=== PATIENT | female | born 1935 | race Caucasian/White ===

== ENCOUNTER 2020-08-23 16:07 | Emergency (ER) | payer MEDICARE, OTHER ==
--- NOTE | 2020-08-23 16:50 | EDM.PDOC ---
ED HPI GENERAL MEDICAL PROBLEM - General Chief Complaint: Chest Pain Stated Complaint: HEART PROBLEMS Time Seen by Provider: 08/23/20 16:28 Source of Information: Reports: Patient History Limitations: Reports: No Limitations - History of Present Illness INITIAL COMMENTS - FREE TEXT/NARRATIVE: Patient presents from [facility] with recent episodes of dyspnea and chest pain. She says it started 3 weeks ago. For a long time she has walked on the treadmill for 30 minutes at a time. Three weeks ago she started having dyspnea along with burning and tightness in her chest after 20 minutes of walking. It has steadily progressed until last week she had the symptoms after 5 minutes of walking. With the worst episodes she also has pain in left side of neck and jaw. She made an appointment with her PCP for today but prior to the appointment she had the chest pain, tightness and dyspnea after walking across the street with a small box of dolls she and a neighbor were working on. She says the pain has always resolved within a couple minutes of sitting to rest. It has never started while sitting or lying. - Related Data Allergies Allergy/AdvReac Type Severity Reaction Status Date / Time cortisone Allergy Swelling Verified 08/23/20 16:14 Bmwbyja-Baq-Xin Reductase Allergy Fatigue Verified 08/23/20 16:14 Inhibitor sulfacetamide Allergy Swelling Verified 08/23/20 16:14 [From Sulfamide] Home Meds: Home Meds Aspirin [Adult Low Dose Aspirin EC] 81 mg PO DAILY 08/23/20 [History] Candesartan/Hydrochlorothiazid [Candesartan-Hctz 32-25 mg Tab] 1 each PO DAILY 08/23/20 [History] Furosemide [Lasix] 20 mg PO DAILY 08/23/20 [History] Metoprolol Succinate [Toprol Xl] 50 mg PO DAILY 08/23/20 [History] Past Medical History Cardiovascular History: Reports: High Cholesterol, Hypertension, SOB on Exertion Genitourinary History: Reports: Urinary Incontinence Social & Family History - Tobacco Use Tobacco Use Status *Q: Never Tobacco User - Caffeine Use Caffeine Use: Reports: Coffee - Recreational Drug Use Recreational Drug Use: No ED ROS GENERAL - Review of Systems Review Of Systems: See Below Constitutional: Denies: Fever, Chills, Malaise, Weakness, Diaphoresis HEENT: Denies: Ear Pain, Throat Pain, Vision Change Respiratory: Reports: Shortness of Breath. Denies: Cough Cardiovascular: Reports: Chest Pain. Denies: Lightheadedness, Syncope GI/Abdominal: Denies: Abdominal Pain, Diarrhea, Nausea, Vomiting : Reports: Dysuria (chronic with incontinence, doesn't know if she might have a UTI) Musculoskeletal: Reports: Neck Pain (sometimes with the chest pain). Denies: Arm Pain, Back Pain, Hand Pain Skin: Denies: Cyanosis, Jaundice, Mottled, Pallor, Diaphoresis Neurological: Denies: Confusion, Dizziness, Headache, Seizure, Syncope, Trouble Speaking, Difficulty Walking Psychiatric: Denies: Agitation, Anxiety, Confusion ED EXAM, GENERAL - Physical Exam Exam: See Below Exam Limited By: No Limitations General Appearance: Alert, WD/WN, No Apparent Distress Eye Exam: Bilateral Eye: EOMI, Normal Inspection, PERRL Ears: Normal External Exam, Hearing Grossly Normal Nose: Normal Inspection, No Blood Throat/Mouth: Normal Inspection, Normal Lips, Normal Voice, No Airway Compromise Head: Atraumatic, Normocephalic Neck: Normal Inspection, Full Range of Motion Respiratory/Chest: No Respiratory Distress, Lungs Clear, Normal Breath Sounds Cardiovascular: Regular Rate, Rhythm, No Murmur GI/Abdominal: Normal Bowel Sounds, Soft, Non-Tender, No Organomegaly, No Distention Back Exam: Normal Inspection, Full Range of Motion. No: CVA Tenderness (L), CVA Tenderness (R) Extremities: Normal Inspection, Normal Range of Motion Neurological: Alert, Oriented, Normal Cognition, No Motor/Sensory Deficits Psychiatric: Normal Affect, Normal Mood Skin Exam: Warm, Dry, Intact, Normal Color, No Rash Course - Vital Signs Last Recorded V/S: Last Vital Signs Temp 97.6 F 08/23/20 18:25 Pulse 55 L 08/23/20 18:25 Resp 18 08/23/20 18:25 BP 168/83 H 08/23/20 18:25 Pulse Ox 98 08/23/20 18:25 - Orders/Labs/Meds Orders: Active Orders 24 hr Category Date Time Status CULTURE URINE [RM] Stat Lab 08/23/20 18:33 Ordered Heparin Sodium/D5W 250 ml Med 08/23/20 19:30 Ordered IV TITRATE Medication Orders Heparin Sodium/Dextrose () 250 mls @ 0.289 mls/hr IV TITRATE MANISH; Protocol Labs: Laboratory Tests 08/23/20 08/23/20 08/23/20 Range/Units 17:15 17:50 18:15 WBC 6.51 (5.00-10.00) 10^3/uL RBC 4.48 (3.80-5.50) 10^6/uL Hgb 12.7 (12.0-16.0) g/dL Hct 38.8 (37.0-47.0) % MCV 86.6 (82.0-92.0) fL MCH 28.3 (27.0-31.0) pg MCHC 32.7 (32.0-36.0) g/dL RDW 13.0 (11.5-14.5) % Plt Count 198 (150-400) 10^3/uL MPV 9.2 (7.4-10.4) fL Immature Gran % (Auto) 0.2 (0.0-5.0) % Neut % (Auto) 60.8 (50.0-70.0) % Lymph % (Auto) 27.5 (20.0-40.0) % Thayer % (Auto) 7.2 (2.0-8.0) % Eos % (Auto) 4.0 H (1.0-3.0) % Baso % (Auto) 0.3 (0.0-1.0) % Neut # (Auto) 3.96 (2.50-7.00) 10^3/uL Lymph # (Auto) 1.79 (1.00-4.00) 10^3/uL Thayer # (Auto) 0.47 (0.10-0.80) 10^3/uL Eos # (Auto) 0.26 (0.10-0.30) 10^3/uL Baso # (Auto) 0.02 (0.00-0.10) 10^3/uL Immature Gran # (Auto) 0.01 (0.00-0.50) 10^3/uL POC Sodium 140 (138-146) mmol/L POC Potassium 3.8 (3.5-4.5) mmol/L POC Chloride 101 (98-107) mmol/l POC Total CO2 30 (23-30) mmol/L POC Anion Gap 13 (7-16) mmol/L POC BUN 29 H (8-26) mg/dL POC Creatinine 1.82 H (0.51-1.19) mg/dL POC Estimated GFR (eGFR) 26 mL/min POC Glucose 122 H (74-106) mg/dl POC Ioniz Calcium Diaz 1.14 L (4.6-5.3) mmol/L POC Troponin I 0.79 H (0.00-0.08) ng/mL Specimen Type Urinblad Urine Color Yellow (YELLOW) Urine Appearance Clear (CLEAR) Urine pH 5.5 (5.0-9.0) Ur Specific Springer 1.020 (1.005-1.030) Urine Protein Negative (NEGATIVE) mg/dL Urine Glucose (UA) Negative (NEGATIVE) mg/dL Urine Ketones Negative (NEGATIVE) mg/dL Urine Occult Blood Negative (NEGATIVE) Urine Nitrite Positive H (NEGATIVE) Urine Bilirubin Negative (NEGATIVE) Urine Urobilinogen 0.2 (0.2-1.0) E.U./dL Ur Leukocyte Esterase Moderate H (NEGATIVE) Urine RBC 0-5 (0-5) /HPF Urine WBC 30-40 H (0-5) /HPF Ur Epithelial Cells Few /LPF Urine Bacteria Moderate H (NONE TO FEW) /HPF Meds: Medications Generic Name Dose Route Start Last Admin Trade Name Freq PRN Reason Stop Dose Admin Heparin Sodium/Dextrose 250 mls @ 0.289 mls/hr 08/23/20 19:30 IV TITRATE MANISH Protocol 12 UNITS/KG/HR - Re-Assessments/Exams Free Text/Narrative Re-Assessment/Exam: 08/23/20 19:23 Lab analyzer was down for awhile so troponin results were delayed. I discussed this with patient and apologized for the delay. EKG shows S-T depression in V3-6. Troponin is 0.79. I discussed case with Dr. Cardenas who accepted for transfer to [facility]. Discussed findings and treatment plan with patient and her son. Patient has been stable and asymptomatic throughout ER course. She has had only aspirin so far but will start Heparin drip now. Departure - Departure Time of Disposition: 19:26 Disposition: DC/Tfer to Acute Hospital 02 Reason for Transfer *Q: Other Condition: Good Clinical Impression: Elevated troponin, UTI (urinary tract infection), uncomplicated Chest pain due to myocardial ischemia Qualifiers: Ischemic chest pain type: unstable angina pectoris Qualified Code(s): I20.0 - Unstable angina Referrals: Esme Alonzo, MUSCULOSKELETAL PHYSIOTHERAPIST [Primary Care Provider] - Forms: ED Department Discharge Sepsis Event Note (ED) - Evaluation Sepsis Screening Result: No Definite Risk - Focused Exam Vital Signs: Vital Signs Temp Pulse Resp BP Pulse Ox 08/23/20 18:25 97.6 F 55 L 18 168/83 H 98 08/23/20 16:14 97.8 F 57 L 18 153/65 H 95 - My Orders Last 24 Hours: My Active Orders 08/23/20 18:33 CULTURE URINE [RM] Stat 08/23/20 19:30 Heparin Sodium/D5W 250 ml IV TITRATE - Assessment/Plan Last 24 Hours: My Active Orders 08/23/20 18:33 CULTURE URINE [RM] Stat 08/23/20 19:30 Heparin Sodium/D5W 250 ml IV TITRATE
--- NOTE | 2020-08-23 17:11 | CR ---
[id number] RAD/RAD Chest PA And Lateral EXAM: RAD Chest PA And Lateral INDICATION: DYSPNEA, CHEST PAIN. COMPARISON: None. DISCUSSION: Cardiomediastinal silhouette is normal in size and contour. No infiltrate, effusion, pneumothorax, or edema. Pulmonary hyperinflation. IMPRESSION: No acute cardiopulmonary abnormality. Alex Cantrell DO 08/23/20 [id number] Thank you for allowing us to participate in the care of your patient.
[2020-08-23 18:19] LABS: POTASSIUM,POC 3.8 mmol/L (3.5-4.5)
[2020-08-23] MEDS ORDERED: Heparin Sodium/D5W 250 ML IV SCH (19:30)
== END 2020-08-23 20:09 ==
LOC: KA.ED 16:07
DX: I20.0 Unstable angina (principal); N39.0 Urinary tract infection, site not specified; R79.89 Other specified abnormal findings of blood chemistry; I10 Essential (primary) hypertension; Z88.8 Allergy status to other drugs, medicaments and biological substances; Z88.2 Allergy status to sulfonamides; Z79.82 Long term (current) use of aspirin; Z79.899 Other long term (current) drug therapy
CPT/HCPCS: 36415; 71046; 80047; 81001; 84484; 85025; 87086; 87088; 87186; 93005; 96374; 99284; 99285-25; J1644

== ENCOUNTER 2020-09-01 12:10 | Inpatient (IN) | payer MEDICARE, OTHER ==
[2020-09-01] MEDS ORDERED: traMADol 50 MG Tab PO PRN (15:56)
[2020-09-01] MEDS ORDERED: Glucagon,Human Recombinant 1 MG Vial IM PRN (15:56)
[2020-09-01] MEDS ORDERED: 50% Dextrose in Water 50 ML Syringe IV PRN (15:56)
[2020-09-01] MEDS: Acetaminophen 325 MG Tab PO PRN ×2 (16:39→22:38)
[2020-09-01] MEDS: Insulin Aspart 100 Units/ML 3 ML Pen SUBCUT SCH ×2 (17:43→21:44)
[2020-09-01] MEDS: Apixaban 5 MG Tab PO SCH (20:11)
[2020-09-01] MEDS: Metoprolol Succinate 50 MG Tab.ER PO SCH (20:12)
[2020-09-02] MEDS: Acetaminophen 325 MG Tab PO PRN ×2 (03:21→22:39)
[2020-09-02] MEDS: Omeprazole 20 MG Cap.CR PO SCH (06:59)
[2020-09-02] MEDS: Insulin Aspart 100 Units/ML 3 ML Pen SUBCUT SCH (07:49)
--- NOTE | 2020-09-02 08:26 | PCM.HP.2 ---
H&P History of Present Illness - General Date of Service: 09/02/20 Admit Problem/Dx: Admission Diagnosis/Problem Admission Diagnosis/Problem "Coronary artery bypass with autogenous graft, three grafts " Mid-Sternal Chest Pain Score (Numeric/FACES): 2 - Related Data Allergies/Adverse Reactions: Allergies Allergy/AdvReac Type Severity Reaction Status Date / Time ciprofloxacin Allergy Cannot Verified 09/01/20 12:29 Remember cortisone Allergy Swelling Verified 08/23/20 16:14 Kfzrrya-Qgm-Vou Reductase Allergy Fatigue Verified 08/23/20 16:14 Inhibitor sulfacetamide Allergy Swelling Verified 08/23/20 16:14 [From Sulfamide] Home Medications: Home Meds Furosemide [Lasix] 40 mg PO DAILY 08/23/20 [History] Acetaminophen [Tylenol] 650 mg PO Q4H PRN 08/31/20 [History] Cholecalciferol (Vitamin D3) [Vitamin D3] 50 mcg PO DAILY 08/31/20 [History] Docusate Sodium 250 mg PO DAILY 08/31/20 [History] Omeprazole 20 mg PO ACBREAKFAST 08/31/20 [History] Pravastatin Sodium 10 mg PO BEDTIME 08/31/20 [History] traMADol [Ultram] 25 mg PO Q4H PRN 08/31/20 [History] Amiodarone [Cordarone] 400 mg PO DAILY 09/01/20 [History] Apixaban [Eliquis] 5 mg PO BID 09/01/20 [History] Aspirin [Halfprin] 81 mg PO DAILY 09/01/20 [History] Insulin Aspart [NovoLOG] 2 - 8 unit SUBCUT WITHMEALSANDBED 09/01/20 [History] Metoprolol Succinate [Toprol Xl] 50 mg PO BID 09/01/20 [History] Past Medical History HEENT History: Reports: Impaired Vision Cardiovascular History: Reports: Afib, High Cholesterol, Hypertension, SOB on Exertion Respiratory History: Reports: None Gastrointestinal History: Reports: GERD Genitourinary History: Reports: Urinary Incontinence [employer] WORK[employer] History: Reports: Neurological History: Reports: None Psychiatric History: Reports: None Hematologic History: Reports: None Immunologic History: Reports: None Oncologic (Cancer) History: Reports: None Dermatologic History: Reports: None - Infectious Disease History Infectious Disease History: Reports: Chicken Pox - Past Surgical History Head Surgeries/Procedures: Reports: None Cardiovascular Surgical History: Reports: Coronary Artery Bypass Other Cardiovascular Surgeries/Procedures: CABG x3 on August 25 2020 Social & Family History - Tobacco Use Tobacco Use Status *Q: Never Tobacco User - Caffeine Use Caffeine Use: Reports: Coffee - Recreational Drug Use Recreational Drug Use: No H&P Review of Systems - Review of Systems: Review Of Systems: See Below General: Reports: No Symptoms HEENT: Reports: No Symptoms Pulmonary: Reports: Cough (very mild cough only, sporadic) Cardiovascular: Reports: Chest Pain (slight chest wall pain) Gastrointestinal: Denies: Constipation, Nausea, Vomiting Genitourinary: Reports: No Symptoms Musculoskeletal: Reports: Other (Chest wall pain, on coughing she is using her splint) Skin: Reports: Wound (Sternotomy healing well, left wrist radial healing well) Psychiatric: Reports: No Symptoms Neurological: Denies: Confusion Hematologic/Lymphatic: Reports: No Symptoms Immunologic: Reports: No Symptoms Exam - Exam Exam: See Below - Vital Signs Vital Signs: Last Vital Signs Temp 97.2 F 09/02/20 06:32 Pulse 63 09/02/20 06:32 Resp 24 H 09/02/20 06:32 BP 158/67 H 09/02/20 06:32 Pulse Ox 93 L 09/02/20 06:32 Weight: 199 lb - Exam Quality Assessment: No: Supplemental Oxygen General: Alert, Oriented, 4 HEENT: Mucosa Moist & [place] Neck: Supple Lungs: Clear to Auscultation, Normal Respiratory Effort Cardiovascular: Regular Rate, Regular Rhythm GI/Abdominal Exam: Soft. No: No Distention (Female) Exam: Deferred Extremities: Other (Plus nonpitting edema bilateral lower ankles) Peripheral Pulses: 0: Radial (L) (post CABG), 2+: Radial (R) Skin: Incision (Anatomy chest wall healing well, left wrist healing well) Neurological: Cranial Nerves Intact Neuro Extensive - Mental Status: Alert, Oriented x3, Normal Mood/Affect, Normal Cognition Neuro Extensive - Motor, Sensory, Reflexes: CN II-XII Intact, Normal Gait, Normal Reflexes Psychiatric: Alert, Normal Affect, Normal Mood - Patient Data Lab Results Last 24 hrs: Laboratory Results - last 24 hr 09/01/20 09/01/20 09/02/20 Range/Units 17:37 21:36 07:32 POC Glucose 115 127 104 (70-140) mg/dL Sepsis Event Note - Evaluation Sepsis Screening Result: No Definite Risk - Focused Exam Vital Signs: Vital Signs Temp Pulse Resp BP Pulse Ox 09/02/20 06:32 97.2 F 63 24 H 158/67 H 93 L 09/01/20 21:00 96.7 F L 101 H 24 H 152/83 H 95 Problem List Initiated/Reviewed/Updated: Yes Orders Last 24hrs: Active Orders 24 hr Category Date Time Status Patient Status [ADT] Routine ADT 09/01/20 12:13 Active Ambulate [RC] PER UNIT ROUTINE Care 09/01/20 12:40 Active Blood Glucose Check, Bedside [RC] 0730,1130,1730,21 Care 09/01/20 12:40 Active Communication Order [RC] DAILY Care 09/01/20 10:59 Active Height and Weight [RC] We@07 Care 09/01/20 12:42 Active Intake and Output [RC] 1400,2200,0600 Care 09/01/20 12:40 Active May Shower [RC] ASDIRECTED Care 09/01/20 12:40 Active Oxygen Therapy [RC] .PRN Care 09/01/20 12:40 Active Up ad Cynthia [RC] ASDIRECTED Care 09/01/20 12:40 Active VTE/DVT Education [RC] We@09 Care 09/01/20 12:40 Active Vital Signs [RC] Care 09/01/20 12:40 Active PT Evaluation and Treatment [CONS] Routine Cons 09/01/20 12:40 Active Regular Diet [DIET] Diet 09/01/20 Dinner Active Acetaminophen [TylenoL] Med 09/01/20 15:56 Active 650 mg PO Q4H PRN Amiodarone [Cordarone] Med 09/02/20 09:00 Active 400 mg PO DAILY Apixaban [Eliquis] Med 09/01/20 21:00 Active 5 mg PO BID Aspirin [Halfprin] Med 09/02/20 09:00 Active 81 mg PO DAILY Cholecalciferol (Vitamin D3) [Vitamin D3] Med 09/02/20 09:00 Active 50 mcg PO DAILY Dextrose 50% in Water Med 09/01/20 15:56 Active 50 ml IV ASDIRECTED PRN Docusate Sodium [Colace] Med 09/02/20 09:00 Active 200 mg PO DAILY Furosemide [Lasix] Med 09/02/20 09:00 Active 40 mg PO DAILY Glucagon,Human Recombinant [GlucaGen] Med 09/01/20 15:56 Active 1 mg IM ASDIRECTED PRN Insulin Aspart [NovoLOG] Med 09/01/20 18:00 Active 2 - 8 unit SUBCUT WITHMEALSANDBED Metoprolol Succinate [Toprol XL] Med 09/01/20 21:00 Active 50 mg PO BID Omeprazole Med 09/02/20 07:30 Active 20 mg PO ACBREAKFAST Pravastatin Sodium [Pravastatin Sodium] Med 09/01/20 21:00 Pending 10 mg PO BEDTIME traMADol [Ultram] Med 09/01/20 15:56 Active 25 mg PO Q4H PRN Resuscitation Status Routine Resus Stat 09/01/20 12:40 Ordered Medication Orders Acetaminophen (Acetaminophen 325 Mg Tab) 650 mg PO Q4H PRN PRN Reason: Pain Last Admin: 09/02/20 03:21 Dose: 650 mg Documented by: Admin: 09/01/20 22:38 Dose: 650 mg Documented by: Admin: 09/01/20 16:39 Dose: 650 mg Documented by: RUFINA Amiodarone HCl (Amiodarone 200 Mg Tab) 400 mg PO DAILY [facility] Stop: 09/11/20 12:00 Apixaban (Apixaban 5 Mg Tab) 5 mg PO BID [facility] Last Admin: 09/01/20 20:11 Dose: 5 mg Documented by: BRAXTON Aspirin (Aspirin 81 Mg Tab.Ec) 81 mg PO DAILY [facility] Cholecalciferol (Cholecalciferol (Vitamin D3) 25 Mcg Tab) 50 mcg PO DAILY [facility] Dextrose/Water (50% Dextrose In Water 50 Ml Syringe) 50 ml IV ASDIRECTED PRN PRN Reason: Hypoglycemia Docusate Sodium (Docusate Sodium 100 Mg Cap) 200 mg PO DAILY [facility] Furosemide (Furosemide 40 Mg Tab) 40 mg PO DAILY [facility] Glucagon (Glucagon,Human Recombinant 1 Mg Vial) 1 mg IM ASDIRECTED PRN PRN Reason: Hypoglycemia Insulin Aspart (Insulin Aspart 100 Units/Ml 3 Ml Pen) 2 - 8 unit SUBCUT WITHMEALSANDBED [facility] Last Admin: 09/02/20 07:49 Dose: Not Given Documented by: Admin: 09/01/20 21:44 Dose: Not Given Documented by: Admin: 09/01/20 17:43 Dose: Not Given Documented by: RUFINA Metoprolol Succinate (Metoprolol Succinate 50 Mg Tab.Er) 50 mg PO BID [facility] Last Admin: 09/01/20 20:12 Dose: 50 mg Documented by: BRAXTON Non-Formulary Medication (Pravastatin Sodium [Pravastatin Sodium]) 10 mg PO BEDTIME MANISH Omeprazole (Omeprazole 20 Mg Cap.Cr) 20 mg PO ACBREAKFAST [facility] Last Admin: 09/02/20 06:59 Dose: 20 mg Documented by: BOOGIE Tramadol HCl (Tramadol 50 Mg Tab) 25 mg PO Q4H PRN PRN Reason: Pain Assessment/Plan Comment:: History of present illness Ms. Powell is a 85 year old female was transferred and admitted into assisted here at [facility] for rehabilitation after she suffered a type I non-STEMI with status post CABG x3. Was evaluated in [facility] on August 23 when she came in for shortness of breath and chest pain subsequently sent to the [facility] with notable elevated cardio biomarkers and therefore was transferred to higher tertiary care [facility]. Primary SNF problems --Recent non-STEMI/CAD status post CABG x3 --Atrial fibrillation, [id number] Score; 6, anticoagulation with Eliquis, rate control post AZ; Toprol 50 mg BID, amiodarone Chronic/stable problems Prediabetes T2DM, last A1c 6.3%, Continue NovoLog low-dose correction daily before meals, Check blood sugars 3 times daily before meals and at bedtime HLD, Continue pravastatin 10 mg daily CAD, s/p AZ; ASA, PPI HTN, Toprol CKD, stage IV, Creat baseline ~1.3-1.4 Obesity Disposition/overall plan --Admit into rehabilitation/assisted facility here at [facility] for PT, --Wound sternal precautions/splinting --Avoid straining, monitor for constipation/hard stools, Colace --Upon DC will commence cardiac rehab Fernandez - Mortality Measure Prognosis:: Good
[2020-09-02] MEDS: Aspirin 81 MG Tab.EC PO SCH (08:55)
[2020-09-02] MEDS: Apixaban 5 MG Tab PO SCH ×2 (08:55→20:54)
[2020-09-02] MEDS: Amiodarone 200 MG Tab PO SCH (08:55)
[2020-09-02] MEDS: Cholecalciferol (Vitamin D3) 25 MCG Tab PO SCH (08:55)
[2020-09-02] MEDS: Furosemide 40 MG Tab PO SCH (08:56)
[2020-09-02] MEDS: Metoprolol Succinate 50 MG Tab.ER PO SCH ×2 (08:56→20:54)
[2020-09-02] MEDS: Docusate Sodium 100 MG Cap PO SCH (09:51)
[2020-09-02] MEDS: Pravastatin 20 MG Tab PO SCH (20:54)
[2020-09-03] MEDS: Omeprazole 20 MG Cap.CR PO SCH ×2 (05:55→06:34)
[2020-09-03] MEDS: Apixaban 5 MG Tab PO SCH ×2 (08:20→21:05)
[2020-09-03] MEDS: Aspirin 81 MG Tab.EC PO SCH (08:20)
[2020-09-03] MEDS: Cholecalciferol (Vitamin D3) 25 MCG Tab PO SCH (08:21)
[2020-09-03] MEDS: Metoprolol Succinate 50 MG Tab.ER PO SCH ×2 (08:21→21:05)
[2020-09-03] MEDS: Docusate Sodium 100 MG Cap PO SCH (08:22)
[2020-09-03] MEDS: Amiodarone 200 MG Tab PO SCH (08:22)
[2020-09-03] MEDS: Furosemide 40 MG Tab PO SCH (08:22)
[2020-09-03] MEDS: Acetaminophen 325 MG Tab PO PRN ×2 (08:24→22:35)
[2020-09-03] MEDS: Pravastatin 20 MG Tab PO SCH (21:05)
[2020-09-04] MEDS: Omeprazole 20 MG Cap.CR PO SCH (07:44)
[2020-09-04] MEDS: Apixaban 5 MG Tab PO SCH ×2 (10:26→20:32)
[2020-09-04] MEDS: Amiodarone 200 MG Tab PO SCH (10:26)
[2020-09-04] MEDS: Aspirin 81 MG Tab.EC PO SCH (10:27)
[2020-09-04] MEDS: Furosemide 40 MG Tab PO SCH (10:28)
[2020-09-04] MEDS: Cholecalciferol (Vitamin D3) 25 MCG Tab PO SCH (10:28)
[2020-09-04] MEDS: Metoprolol Succinate 50 MG Tab.ER PO SCH ×2 (10:29→20:33)
[2020-09-04] MEDS: Docusate Sodium 100 MG Cap PO SCH (10:29)
[2020-09-04] MEDS: Pravastatin 20 MG Tab PO SCH (20:32)
[2020-09-05] MEDS: Omeprazole 20 MG Cap.CR PO SCH (07:50)
[2020-09-05] MEDS: Apixaban 5 MG Tab PO SCH ×2 (08:25→20:43)
[2020-09-05] MEDS: Aspirin 81 MG Tab.EC PO SCH (08:25)
[2020-09-05] MEDS: Cholecalciferol (Vitamin D3) 25 MCG Tab PO SCH (08:26)
[2020-09-05] MEDS: Amiodarone 200 MG Tab PO SCH (08:26)
[2020-09-05] MEDS: Docusate Sodium 100 MG Cap PO SCH (08:26)
[2020-09-05] MEDS: Metoprolol Succinate 50 MG Tab.ER PO SCH ×2 (08:26→20:44)
[2020-09-05] MEDS: Furosemide 40 MG Tab PO SCH (08:33)
--- NOTE | 2020-09-05 14:09 | CR ---
[id number] RAD/RAD Chest PA And Lateral EXAM: RAD Chest PA And Lateral CLINICAL DATA: LOWER EXTREMITY SWELLING COMPARISON: CORRELATION IS MADE WITH AUGUST 23, 2020 FINDINGS: Surgical changes now are seen There is a small to moderate left effusion There is atelectasis at the left lung base There is a small right effusion The cardiac silhouette is enlarged IMPRESSION: RECENT SURGICAL CHANGES. ATELECTASIS AND EFFUSION LEFT BASE SMALL EFFUSION RIGHT BASE Daquan Stahl MD 09/05/20 [id number] Thank you for allowing us to participate in the care of your patient.
[2020-09-05] MEDS ORDERED: Furosemide 40 MG/4 ML VIAL IVPUSH ONE (14:25)
[2020-09-05] MEDS ORDERED: Sodium Chloride 0.9% 10 ML Syringe FLUSH PRN (14:25)
[2020-09-05] MEDS: Pravastatin 20 MG Tab PO SCH (20:43)
[2020-09-06] MEDS: Acetaminophen 325 MG Tab PO PRN ×2 (00:29→22:29)
[2020-09-06] MEDS: Omeprazole 20 MG Cap.CR PO SCH (06:30)
[2020-09-06 08:16] LABS: ANION GAP 12.9 mmol/L (5-15)
[2020-09-06] MEDS: Docusate Sodium 100 MG Cap PO SCH (08:24)
[2020-09-06] MEDS: Cholecalciferol (Vitamin D3) 25 MCG Tab PO SCH (08:24)
[2020-09-06] MEDS: Amiodarone 200 MG Tab PO SCH (08:24)
[2020-09-06] MEDS: Apixaban 5 MG Tab PO SCH ×2 (08:25→20:46)
[2020-09-06] MEDS: Furosemide 40 MG Tab PO SCH (08:25)
[2020-09-06] MEDS: Aspirin 81 MG Tab.EC PO SCH (08:25)
[2020-09-06] MEDS: Metoprolol Succinate 50 MG Tab.ER PO SCH (08:33)
[2020-09-06] MEDS ORDERED: Furosemide 40 MG/4 ML VIAL IVPUSH ONE (09:02)
--- NOTE | 2020-09-06 09:45 | PCM.PN ---
- General Info Date of Service: 09/06/20 Functional Status: Reports: Pain Controlled, Tolerating Diet, Ambulating, Urinating. Denies: New Symptoms - Review of Systems Pulmonary: Reports: Cough. Denies: Shortness of Breath Cardiovascular: Reports: Dyspnea on Exertion, Orthopnea, Edema, Other (generalized anterior chest discomfort with coughing only). Denies: Chest Pain Neurological: Denies: Dizziness, Headache Psychiatric: Reports: No Symptoms - Patient Data Vitals - Most Recent: Last Vital Signs Temp 98.1 F 09/06/20 06:47 Pulse 54 L 09/06/20 08:33 Resp 16 09/06/20 06:47 BP 150/66 H 09/06/20 08:33 Pulse Ox 95 09/06/20 06:47 Weight - Most Recent: 195 lb 6 oz I&O - Last 24 Hours: Intake & Output 09/05/20 09/06/20 09/06/20 22:59 06:59 14:59 Intake Total 500 100 Balance 500 100 Lab Results Last 24 Hours: Laboratory Results - last 24 hr 09/05/20 09/06/20 Range/Units 13:35 07:40 Sodium 143 143 (136-145) mmol/L Potassium 4.4 4.4 (3.5-5.1) mmol/L Chloride 104 104 (98-107) mmol/L Carbon Dioxide 30.4 30.5 (21.0-32.0) mmol/L Anion Gap 13.0 12.9 (5-15) mmol/L BUN 29 H 29 H (7-18) mg/dL Creatinine 1.53 H 1.43 H (0.51-1.17) mg/dL Est Cr Clr Drug Dosing 24.63 26.35 mL/min Estimated GFR (MDRD) 32 35 mL/min Glucose 131 117 (70-140) mg/dL Calcium 8.9 9.3 (8.7-10.3) mg/dL B-Natriuretic Peptide 817 H (0-100) pg/mL Med Orders - Current: Current Medications Acetaminophen (Acetaminophen 325 Mg Tab) 650 mg PO Q4H PRN PRN Reason: Pain Last Admin: 09/06/20 00:29 Dose: 650 mg Documented by: Amiodarone HCl (Amiodarone 200 Mg Tab) 400 mg PO DAILY [facility] Stop: 09/10/20 09:01 Last Admin: 09/06/20 08:24 Dose: 400 mg Documented by: Amiodarone HCl (Amiodarone 200 Mg Tab) 200 mg PO DAILY [facility] Stop: 09/20/20 09:01 Apixaban (Apixaban 5 Mg Tab) 5 mg PO BID [facility] Last Admin: 09/06/20 08:25 Dose: 5 mg Documented by: Aspirin (Aspirin 81 Mg Tab.Ec) 81 mg PO DAILY [facility] Last Admin: 09/06/20 08:25 Dose: 81 mg Documented by: Cholecalciferol (Cholecalciferol (Vitamin D3) 25 Mcg Tab) 50 mcg PO DAILY [facility] Last Admin: 09/06/20 08:24 Dose: 50 mcg Documented by: Docusate Sodium (Docusate Sodium 100 Mg Cap) 200 mg PO DAILY [facility] Last Admin: 09/06/20 08:24 Dose: 200 mg Documented by: Furosemide (Furosemide 40 Mg Tab) 40 mg PO DAILY [facility] Last Admin: 09/06/20 08:25 Dose: 40 mg Documented by: Metoprolol Succinate (Metoprolol Succinate 25 Mg Tab.Er) 25 mg PO BID [facility] Omeprazole (Omeprazole 20 Mg Cap.Cr) 20 mg PO ACBREAKFAST [facility] Last Admin: 09/06/20 06:30 Dose: 20 mg Documented by: Pravastatin Sodium (Pravastatin 20 Mg Tab) 10 mg PO BEDTIME [facility] Last Admin: 09/05/20 20:43 Dose: 10 mg Documented by: Sodium Chloride (Sodium Chloride 0.9% 10 Ml Syringe) 10 ml FLUSH Q8HR PRN PRN Reason: keep vein open Tramadol HCl (Tramadol 50 Mg Tab) 25 mg PO Q4H PRN PRN Reason: Pain Discontinued Medications Amiodarone HCl (Amiodarone 200 Mg Tab) 200 mg PO DAILY [facility] Stop: 09/21/20 12:00 Dextrose/Water (50% Dextrose In Water 50 Ml Syringe) 50 ml IV ASDIRECTED PRN PRN Reason: Hypoglycemia Furosemide (Furosemide 40 Mg/4 Ml Vial) 40 mg IVPUSH NOW ONE Stop: 09/05/20 14:26 Last Admin: 09/05/20 15:45 Dose: 40 mg Documented by: Furosemide (Furosemide 40 Mg/4 Ml Vial) 40 mg IVPUSH NOW ONE Stop: 09/06/20 09:03 Glucagon (Glucagon,Human Recombinant 1 Mg Vial) 1 mg IM ASDIRECTED PRN PRN Reason: Hypoglycemia Insulin Aspart (Insulin Aspart 100 Units/Ml 3 Ml Pen) 2 - 8 unit SUBCUT WITHMEALSANDBED [facility] Last Admin: 09/02/20 07:49 Dose: Not Given Documented by: Metoprolol Succinate (Metoprolol Succinate 50 Mg Tab.Er) 50 mg PO BID [facility] Last Admin: 09/06/20 08:33 Dose: 25 mg Documented by: - Exam Quality Assessment: DVT Prophylaxis (On eliquis and Trena stockings). No: Supplemental Oxygen, Urine Catheter General: Alert, Oriented (x3), Cooperative, No Acute Distress Lungs: Clear to Auscultation, Normal Respiratory Effort Cardiovascular: No Murmurs, Irregular Rhythm, Bradycardia Extremities: Other (1+ pitting edema to bilateral feet up to ankles, but then on ly trace to no edema to lower legs) Skin: Warm, Dry Neurological: Normal Speech Psy/Mental Status: Alert, Normal Affect, Normal Mood - Patient Data Lab Results Last 24 hrs: Laboratory Results - last 24 hr 09/05/20 09/06/20 Range/Units 13:35 07:40 Sodium 143 143 (136-145) mmol/L Potassium 4.4 4.4 (3.5-5.1) mmol/L Chloride 104 104 (98-107) mmol/L Carbon Dioxide 30.4 30.5 (21.0-32.0) mmol/L Anion Gap 13.0 12.9 (5-15) mmol/L BUN 29 H 29 H (7-18) mg/dL Creatinine 1.53 H 1.43 H (0.51-1.17) mg/dL Est Cr Clr Drug Dosing 24.63 26.35 mL/min Estimated GFR (MDRD) 32 35 mL/min Glucose 131 117 (70-140) mg/dL Calcium 8.9 9.3 (8.7-10.3) mg/dL B-Natriuretic Peptide 817 H (0-100) pg/mL Result Diagrams: 09/06/20 07:40 Sepsis Event Note - Evaluation Sepsis Screening Result: No Definite Risk - Focused Exam Vital Signs: Vital Signs Temp Pulse Pulse Resp BP BP Pulse Ox 09/06/20 08:33 54 L 150/66 H 09/06/20 06:47 98.1 F 53 L 16 150/66 H 95 - Problem List Review Problem List Initiated/Reviewed/Updated: Yes - My Orders Last 24 Hours: My Active Orders 09/05/20 14:25 Antiembolic Devices [RC] ,21 Height and Weight [RC] DAILY Peripheral IV Care [RC] 06,15, Sodium Chloride 0.9% [Saline Flush] 10 ml FLUSH Q8HR PRN Antiembolic Hose [OM.PC] Routine Peripheral IV Insertion Adult [OM.PC] Routine 09/05/20 14:39 K Pad [Heat Therapy] [OM.PC] Routine 09/06/20 08:35 Incentive Spirometry [RT Incentive Spirometry] [RC] Q2HWA 09/06/20 09:00 Metoprolol Succinate [Toprol XL] 25 mg PO BID - Plan Plan:: HPI summary: This is an 85 yo female who was admitted to [facility] for rehabilitation following a type 1 NSTEMI and CABG x 3. She was initially seen at an outlying [facility] and noted to have lateral ischemia on EKG with accelerating anginal symptoms. She was transferred to the [facility] ER for further work-up and stabilization before being transferred to [facility] for the ab ove diagnoses. Hospital course: 09/05/20: Received a call from nursing with concerns from the patient regarding dyspnea on exertion, shortness of breath with laying flat, and increased lower leg/foot edema. Orders given to obtain BNP, BMP, and CXR. Lungs reported as clear (see nursing note). VS: T 97.6F, HR 57, BP 141/58, RR 18, O2 sat 97% on room air. Wt 198#. Na 143, K 4.4, BUN 29, Ct 1.43, GFR 35, BNP 817. CXR noted atelectasis & effusion at left base with small effusion at right base; these are similar findings compared to CXR dated 08/30/20. Dry wt approx 190 lbs. Orders given to administer lasix 40 mg IV x 1, daily weights, and trena stockings. 09/06/20: No calls overnight. Patient states she feels better this AM on rounds. Fluid in legs is better, but feet remain swollen. HR irregular rhythm/bradycardic, LS clear throughout, trace to no edema to aruna lower legs, 1+ pitting edema from ankles to toes bilaterally. VS: T 98.1F, HR 53, BP 150/66, RR 16, O2 sat 95% on room air. Wt down 2.4#. Na 143, K 4.4, Ct 1.42 (baseline around 1.3-1.4), GFR 35. Primary SNF problems and plan: # Recent NSTEMI/status post CABG x 3. # HFpEF exacerbation. ECHO (08/24/20) EF 60%, grade 1 left ventricular diastolic dysfunction. # Atrial fibrillation. [id number] score 6. # Bradycardia. # Deconditioning. - Continue aspirin 81 mg daily, tylenol 650 mg q4h prn, tramadol 25 mg po q4h prn - Continue sternal wound precautions/splinting - Continue colace 200 mg daily to avoid straining/hard stools - Lasix 40 mg IV x 1 today, then may resume po lasix 40 mg daily - BMP in AM - Daily weights, IS q2h w/a, Trena stockings, elevate lower extremities when seated - Continue amiodarone 600 mg daily, Eliquis 5 mg BID - Decrease Toprol XL from 50 mg BID to 25 mg BID d/t bradycardia - Continue working with PT - Will need cardiac rehab scheduled in [place] upon discharge; SS aware - Will also need to schedule a follow-up with PCP and cardiology upon discharge Chronic, stable conditions: # CAD. # HTN. # Pure hypercholesterolemia. Continue pravastatin 10 mg at HS. LDL 126 (08/24/20). Goal LDL <70. # Prediabetes. A1c 6.1 (08/24/20). No medications/monitoring required at this time d/t age. # Obesity. # CKD stage 3b. Baseline creatinine 1.3-1.4. Recently established with corporate specialist, Dr. Mccarthy. Last seen in 2019. # GERD. Continue omeprazole 20 mg daily. Disposition/overall plan: # FEN: Saline lock today, then dc. Electrolytes wnl. Regular diet. # PPX: On Eliquis, Trena stockings. # Code status: Full Code. # Emergency contact: Michoacano Powell, son. # Disposition: Patient will remain in swingbed status for physical therapy. Pending PT evaluation and heart failure picture, she may be able to be discharged later this week.
[2020-09-06] MEDS: Metoprolol Succinate 25 MG Tab.ER PO SCH ×2 (10:09→20:46)
[2020-09-06] MEDS: Pravastatin 20 MG Tab PO SCH (20:46)
[2020-09-07] MEDS: Omeprazole 20 MG Cap.CR PO SCH ×2 (05:47→06:29)
[2020-09-07 08:25] LABS: ANION GAP 11.8 mmol/L (5-15)
[2020-09-07] MEDS: Docusate Sodium 100 MG Cap PO SCH (09:27)
[2020-09-07] MEDS: Apixaban 5 MG Tab PO SCH ×2 (09:28→20:39)
[2020-09-07] MEDS: Cholecalciferol (Vitamin D3) 25 MCG Tab PO SCH (09:28)
[2020-09-07] MEDS: Furosemide 40 MG Tab PO SCH (09:28)
[2020-09-07] MEDS: Metoprolol Succinate 25 MG Tab.ER PO SCH ×2 (09:28→20:39)
[2020-09-07] MEDS: Aspirin 81 MG Tab.EC PO SCH (09:28)
[2020-09-07] MEDS: Amiodarone 200 MG Tab PO SCH (09:28)
[2020-09-07] MEDS: Pravastatin 20 MG Tab PO SCH (20:38)
[2020-09-07] MEDS: Acetaminophen 325 MG Tab PO PRN (22:20)
[2020-09-08] MEDS: Omeprazole 20 MG Cap.CR PO SCH ×2 (05:26→06:29)
[2020-09-08] MEDS: Cholecalciferol (Vitamin D3) 25 MCG Tab PO SCH (08:27)
[2020-09-08] MEDS: Aspirin 81 MG Tab.EC PO SCH (08:28)
[2020-09-08] MEDS: Amiodarone 200 MG Tab PO SCH (08:28)
[2020-09-08] MEDS: Apixaban 5 MG Tab PO SCH ×2 (08:28→20:23)
[2020-09-08] MEDS: Docusate Sodium 100 MG Cap PO SCH (08:28)
[2020-09-08] MEDS: Furosemide 40 MG Tab PO SCH (08:32)
[2020-09-08] MEDS: Metoprolol Succinate 25 MG Tab.ER PO SCH ×2 (08:32→20:23)
[2020-09-08] MEDS: Pravastatin 20 MG Tab PO SCH (20:20)
[2020-09-08] MEDS: Acetaminophen 325 MG Tab PO PRN (23:08)
[2020-09-09] MEDS: Omeprazole 20 MG Cap.CR PO SCH (08:04)
[2020-09-09] MEDS: Docusate Sodium 100 MG Cap PO SCH (08:34)
[2020-09-09] MEDS: Amiodarone 200 MG Tab PO SCH (08:34)
[2020-09-09] MEDS: Apixaban 5 MG Tab PO SCH (08:35)
[2020-09-09] MEDS: Metoprolol Succinate 25 MG Tab.ER PO SCH (08:35)
[2020-09-09] MEDS: Aspirin 81 MG Tab.EC PO SCH (08:38)
[2020-09-09 08:39] VITALS: BP 154/66; PULSE 61
[2020-09-09] MEDS: Furosemide 40 MG Tab PO SCH (08:39)
[2020-09-09] MEDS: Cholecalciferol (Vitamin D3) 25 MCG Tab PO SCH (08:39)
--- NOTE | 2020-09-10 11:45 | PCM.DCSUM1 ---
Discharge Summary - Hospital Course Diagnosis: Stroke: No - Discharge Data Discharge Date: 09/09/20 Discharge Disposition: Home, W Home Health Agency 06 Condition: Good - Referral to Home Health Date of Face to Face Encounter: 09/09/20 Reason for Homebound Status: Deconditioning Primary Care Physician: Esme Alonzo NP Skilled Need: This is in order and a [id number] encounter for home health services to include nursing and occupational therapy. Please develop in home therapy program to address the need for nursing/occupational therapy along with home health aide for safety and bathing. Patient does have recent myocardial infarction with status post CABG 3 with a mild exacerbation during this hospital stay placing her weak with generalized deconditioning. The patient will be followed by Emse Alonzo NP and Dr. Gee Bennett M.D. in the community setting and will sign home health orders - Patient Summary/Data Consults: Consultations 09/01/20 12:40 PT Evaluation and Treatment [CONS] Routine - Patient Instructions Diet: Heart Healthy Diet Activity: As Tolerated, Cough & Deep Breathe Driving: May Drive Today Showering/Bathing: May Shower Notify Provider of: Fever, Increased Pain - Discharge Plan *PRESCRIPTION DRUG MONITORING PROGRAM REVIEWED*: Not Applicable *COPY OF PRESCRIPTION DRUG MONITORING REPORT IN PATIENT DAVID: Not Applicable Prescriptions/Med Rec: Amiodarone [Cordarone] 400 mg PO DAILY #12 Docusate Sodium 250 mg PO DAILY #60 cap Apixaban [Eliquis] 5 mg PO BID #60 Omeprazole 20 mg PO ACBREAKFAST #90 Metoprolol Succinate [Toprol XL] 25 mg PO BID #60 tab.er Cholecalciferol (Vitamin D3) [Vitamin D3] 50 mcg PO DAILY #60 tab Home Medications: Home Meds Acetaminophen [Tylenol] 650 mg PO Q4H PRN 08/31/20 [History] Pravastatin Sodium 10 mg PO BEDTIME 08/31/20 [History] traMADol [Ultram] 25 mg PO Q4H PRN 08/31/20 [History] Aspirin [Halfprin] 81 mg PO DAILY 09/01/20 [History] Amiodarone [Cordarone] 400 mg PO DAILY #12 09/09/20 [Rx] Apixaban [Eliquis] 5 mg PO BID #60 09/09/20 [Rx] Cholecalciferol (Vitamin D3) [Vitamin D3] 50 mcg PO DAILY #60 tab 09/09/20 [Rx] Docusate Sodium 250 mg PO DAILY #60 cap 09/09/20 [Rx] Furosemide [Lasix] 40 mg PO DAILY #60 cap 09/09/20 [Rx] Metoprolol Succinate [Toprol XL] 25 mg PO BID #60 tab.er 09/09/20 [Rx] Omeprazole 20 mg PO ACBREAKFAST #90 09/09/20 [Rx] Referrals: [facility] [Outside] Esme Alonzo, RAILROAD CONDUCTOR [Primary Care Provider] - 09/24/20 9:30 am (Appt and labs) - Discharge Summary/Plan Comment DC Time >30 min.: Yes Discharge Summary/Plan Comment: Final diagnosis Deconditioning Recent NSTEMI/status post CABG x 3. Atrial fibrillation. [id number] score 6. HFpEF; exacerbation, improved Chronic conditions: CAD. HTN. HFpEF, ECHO (08/24/20) EF 60%, grade 1 left ventricular diastolic dysfunction. Pure hypercholesterolemia. Continue pravastatin 10 mg at HS. LDL 126 (08/24/20). Goal LDL <70. Prediabetes. A1c 6.1 (08/24/20). No medications/monitoring required at this time d/t age. Obesity, CKD stage 3b. Baseline creatinine 1.3-1.4. Recently established with hadoop consultant, Dr. Mccarthy. Last seen in 2019. GERD. omeprazole 20 mg daily. HPI summary: Ms Powell is an 85 yo female who was admitted to [facility] rehabilitation to [facility] following a type 1 NSTEMI and CABG x 3. She was initially seen at an outlying [facility] and noted to have lateral ischemia on EKG with accelerating anginal symptoms. She was transferred to the [facility] ER for further work-up and stabilization before being transferred to [facility]. SNF/hospital course [facility]: 09/05/20: She did have dyspnea on exertion, shortness of breath with laying flat, and increased lower leg/foot edema. Orders given to obtain BNP, BMP, and CXR. Lungs reported as clear. VS: T 97.6F, HR 57, BP 141/58, RR 18, O2 sat 97% on room air. Wt 198#. Na 143, K 4.4, BUN 29, Ct 1.43, GFR 35, BNP 817. CXR noted atelectasis & effusion at left base with small effusion at right base; these are similar findings compared to CXR dated 08/30/20. Dry wt approx 190 lbs. Orders given to administer lasix 40 mg IV x 1, daily weights, and trena stockings. 09/06/20: No calls overnight. Patient states she feels better this AM on rounds. Fluid in legs is better, but feet remain swollen. HR irregular rhythm/bradycardic, LS clear throughout, trace to no edema to aruna lower legs, 1+ pitting edema from ankles to toes bilaterally. VS: T 98.1F, HR 53, BP 150/66, RR 16, O2 sat 95% on room air. Wt down 2.4#. Na 143, K 4.4, Ct 1.42 (baseline around 1.3-1.4), GFR 35. 09/09/2020; patient was deemed ready for discharge, no chest pain no no shortness of breath, was ambulating on floor and had met physical therapy goals for the most part. Vital signs were stable, no hypoxia, she was performing adequate incentive spirometer coughing and deep breathing with adequate splinting. No wound dehiscence. Medication changes/adjustments upon discharge --Decreased Toprol XL from 50 mg BID to 25 mg BID d/t bradycardia --Continue amiodarone 400 mg by mouth daily 1 day then reduced to 200 mg by mouth stop date entered Disposition/overall plan Patient will be [facility] home [facility] therapy cardiac rehab scheduled in [place] upon discharge Will also need to schedule a follow-up with PCP and cardiology upon discharge This is in order and a [id number] encounter for home health services to include nursing and occupational therapy. Please develop in home therapy program to address the need for nursing/occupational therapy along with home health aide for safety and bathing. Patient does have recent myocardial infarction with status post CABG 3 with a mild exacerbation during this hospital stay placing her weak with generalized deconditioning. The patient will be followed by Esme Alonzo NP and Dr. Gee Bennett M.D. in the community setting and will sign home health orders - General Info Functional Status: Reports: Pain Controlled - Review of Systems General: Reports: No Symptoms HEENT: Reports: No Symptoms. Denies: Visual Changes Pulmonary: Denies: Shortness of Breath, Cough, Wheezing Cardiovascular: Reports: Chest Pain (Chest pain anterior to the surgical site on leak, well controlled with splinting) Gastrointestinal: Reports: No Symptoms Genitourinary: Reports: No Symptoms Musculoskeletal: Reports: No Symptoms Skin: Reports: No Symptoms Neurological: Reports: No Symptoms Psychiatric: Reports: No Symptoms - Patient Data Vitals - Most Recent: Last Vital Signs Temp 97.3 F 09/09/20 08:43 Pulse 61 09/09/20 08:43 Resp 20 09/09/20 08:43 BP 154/66 H 09/09/20 08:43 Pulse Ox 98 09/09/20 08:43 Weight - Most Recent: 192 lb 9 oz Med Orders - Current: Current Medications Discontinued Medications Acetaminophen (Acetaminophen 325 Mg Tab) 650 mg PO Q4H PRN PRN Reason: Pain Last Admin: 09/08/20 23:08 Dose: 650 mg Documented by: Amiodarone HCl (Amiodarone 200 Mg Tab) 200 mg PO DAILY [facility] Stop: 09/21/20 12:00 Amiodarone HCl (Amiodarone 200 Mg Tab) 400 mg PO DAILY [facility] Stop: 09/10/20 09:01 Last Admin: 09/09/20 08:34 Dose: 400 mg Documented by: Amiodarone HCl (Amiodarone 200 Mg Tab) 200 mg PO DAILY [facility] Stop: 09/20/20 09:01 Apixaban (Apixaban 5 Mg Tab) 5 mg PO BID [facility] Last Admin: 09/09/20 08:35 Dose: 5 mg Documented by: Aspirin (Aspirin 81 Mg Tab.Ec) 81 mg PO DAILY [facility] Last Admin: 09/09/20 08:38 Dose: 81 mg Documented by: Cholecalciferol (Cholecalciferol (Vitamin D3) 25 Mcg Tab) 50 mcg PO DAILY [facility] Last Admin: 09/09/20 08:39 Dose: 50 mcg Documented by: Dextrose/Water (50% Dextrose In Water 50 Ml Syringe) 50 ml IV ASDIRECTED PRN PRN Reason: Hypoglycemia Docusate Sodium (Docusate Sodium 100 Mg Cap) 200 mg PO DAILY [facility] Last Admin: 09/09/20 08:34 Dose: 200 mg Documented by: Furosemide (Furosemide 40 Mg Tab) 40 mg PO DAILY [facility] Last Admin: 09/09/20 08:39 Dose: 40 mg Documented by: Furosemide (Furosemide 40 Mg/4 Ml Vial) 40 mg IVPUSH NOW ONE Stop: 09/05/20 14:26 Last Admin: 09/05/20 15:45 Dose: 40 mg Documented by: Furosemide (Furosemide 40 Mg/4 Ml Vial) 40 mg IVPUSH NOW ONE Stop: 09/06/20 09:03 Last Admin: 09/06/20 11:27 Dose: 40 mg Documented by: Glucagon (Glucagon,Human Recombinant 1 Mg Vial) 1 mg IM ASDIRECTED PRN PRN Reason: Hypoglycemia Insulin Aspart (Insulin Aspart 100 Units/Ml 3 Ml Pen) 2 - 8 unit SUBCUT WITHMEALSANDBED [facility] Last Admin: 09/02/20 07:49 Dose: Not Given Documented by: Metoprolol Succinate (Metoprolol Succinate 50 Mg Tab.Er) 50 mg PO BID [facility] Last Admin: 09/06/20 08:33 Dose: 25 mg Documented by: Metoprolol Succinate (Metoprolol Succinate 25 Mg Tab.Er) 25 mg PO BID [facility] Last Admin: 09/09/20 08:35 Dose: 25 mg Documented by: Omeprazole (Omeprazole 20 Mg Cap.Cr) 20 mg PO ACBREAKFAST [facility] Last Admin: 09/09/20 08:04 Dose: 20 mg Documented by: Pravastatin Sodium (Pravastatin 20 Mg Tab) 10 mg PO BEDTIME [facility] Last Admin: 09/08/20 20:20 Dose: 10 mg Documented by: Sodium Chloride (Sodium Chloride 0.9% 10 Ml Syringe) 10 ml FLUSH Q8HR PRN PRN Reason: keep vein open Tramadol HCl (Tramadol 50 Mg Tab) 25 mg PO Q4H PRN PRN Reason: Pain - Exam Quality Assessment: Denies: Supplemental Oxygen, Skin Breakdown General: Reports: Alert, Oriented Neck: Reports: Supple Lungs: Reports: Clear to Auscultation, Normal Respiratory Effort Cardiovascular: Reports: Regular Rate, Regular Rhythm GI/Abdominal Exam: Normal Bowel Sounds, Soft Wound/Incisions: Reports: Dressing Dry and Intact Neurological: Reports: No New Focal Deficit, Normal Gait, Normal Speech Psy/Mental Status: Reports: Alert, Normal Affect, Normal Mood
[2020-09-11] MEDS ORDERED: Amiodarone 200 MG Tab PO SCH (09:00)
[2020-09-12] MEDS ORDERED: Amiodarone 200 MG Tab PO SCH (09:00)
== END 2020-09-09 12:50 | disposition home health service (06) | DRG 947 ==
LOC: KA.MS 12:10
PROVIDERS: ADMIT Family Medicine; ATTEND Family Medicine
DX: R53.81 Other malaise (principal); I21.4 Non-ST elevation (NSTEMI) myocardial infarction; I50.33 Acute on chronic diastolic (congestive) heart failure; I13.0 Hypertensive heart and chronic kidney disease with heart failure and stage 1 through stage 4 chronic kidney disease, or unspecified chronic kidney disease; I25.10 Atherosclerotic heart disease of native coronary artery without angina pectoris; N18.32 Chronic kidney disease, stage 3b; K21.9 Gastro-esophageal reflux disease without esophagitis; E78.00 Pure hypercholesterolemia, unspecified; R73.03 Prediabetes; H54.7 Unspecified visual loss; I48.91 Unspecified atrial fibrillation; E66.9 Obesity, unspecified; Z95.1 Presence of aortocoronary bypass graft; Z88.1 Allergy status to other antibiotic agents; Z88.2 Allergy status to sulfonamides; Z88.8 Allergy status to other drugs, medicaments and biological substances; Z79.899 Other long term (current) drug therapy; Z79.82 Long term (current) use of aspirin; Z79.4 Long term (current) use of insulin
CPT/HCPCS: 36415; 71046; 80048; 82947; 83880; 97110-GP; 97161-GP; A9270-GY; J1940

== ENCOUNTER 2020-11-12 10:56 | Emergency (ER) | payer MEDICARE, OTHER ==
[2020-11-12] MEDS: Sodium Chloride 0.9% 1,000 ML IV ONE (12:44)
--- NOTE | 2020-11-12 13:03 | EDM.PDOC ---
ED HPI GENERAL MEDICAL PROBLEM - General Chief Complaint: Cardiovascular Problem Stated Complaint: DIZZINESS/LIGHTHEADED Time Seen by Provider: 11/12/20 11:15 Source of Information: Reports: Patient History Limitations: Reports: No Limitations - History of Present Illness INITIAL COMMENTS - FREE TEXT/NARRATIVE: 85-year-old female presents to the emergency room with symptoms of dizziness with standing and walking. She recently has had her blood pressure medications age-adjusted. Her hydrochlorothiazide was discontinued and she was started on a low-dose amlodipine 2.5 mg. This was started 3 days ago. She reports that she held her amlodipine this morning. She thought her dizziness complaints that she was having previously improved with the discontinuation of the hydro chlorothiazide. 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 She was started on quest she developed postoperative atrial fibrillation. She is currently on a Zio patch. He is instructed to discontinue her Eliquis once her prescription meds have run out. She has been able to continue with her cardiac rehab. She feels that her dizziness restarted on Sunday and continues. She has been closely monitoring her blood pressure taking it 3 times a day and recording. She has fluctuated with elevated blood pressures in the morning and evening and improvements in the afternoon. This has been steady for about 2 weeks. Denies any concerns such as headache, visual changes, chest pain or shortness of breath, abdominal pain. She is not having any voiding problems. She reports she is drinking plenty of fluids. Not been experiencing any nausea or vomiting or gastrointestinal complaints. She is not experience any diaphoresis. Onset: Gradual Onset Date: 11/11/20 Duration: Getting Worse Location: Reports: Generalized Severity: Mild Improves with: Reports: Rest Worsens with: Reports: Movement (standing/walking) Associated Symptoms: Denies: Confusion, Chest Pain, Diaphoresis, Nausea/V omiting, Shortness of Breath, Syncope, Weakness - Related Data Allergies Allergy/AdvReac Type Severity Reaction Status Date / Time ciprofloxacin Allergy Cannot Verified 11/12/20 11:30 Remember cortisone Allergy Swelling Verified 11/12/20 11:30 sulfacetamide Allergy Swelling Verified 11/12/20 11:30 [From Sulfamide] Home Meds: Home Meds Acetaminophen [Tylenol] 650 mg PO Q4H PRN 08/31/20 [History] Pravastatin Sodium 10 mg PO BEDTIME 08/31/20 [History] Aspirin [Halfprin] 81 mg PO DAILY 09/01/20 [History] Apixaban [Eliquis] 5 mg PO BID #60 09/09/20 [Rx] Cholecalciferol (Vitamin D3) [Vitamin D3] 50 mcg PO DAILY #60 tab 09/09/20 [Rx] Metoprolol Succinate [Toprol XL] 25 mg PO BID #60 tab.er 09/09/20 [Rx] Omeprazole 20 mg PO ACBREAKFAST #90 09/09/20 [Rx] Candesartan [Atacand] 32 mg PO DAILY 11/12/20 [History] Docusate Sodium 100 mg PO DAILY 11/12/20 [History] Furosemide [Lasix] 20 mg PO DAILY 11/12/20 [History] amLODIPine Besylate [Norvasc] 2.5 mg PO DAILY 11/12/20 [History] Past Medical History HEENT History: Reports: Impaired Vision Cardiovascular History: Reports: Afib, High Cholesterol, Hypertension, SOB on Exertion Respiratory History: Reports: None Gastrointestinal History: Reports: GERD Genitourinary History: Reports: Urinary Incontinence 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: Neurological History: Reports: None Psychiatric History: Reports: None Hematologic History: Reports: None Immunologic History: Reports: None Oncologic (Cancer) History: Reports: None Dermatologic History: Reports: None - Infectious Disease History Infectious Disease History: Reports: Chicken Pox - Past Surgical History Head Surgeries/Procedures: Reports: None Cardiovascular Surgical History: Reports: Coronary Artery Bypass Other Cardiovascular Surgeries/Procedures: CABG x3 on August 25 2020 Social & Family History - Family History Family Medical History: No Pertinent Family History - Caffeine Use Caffeine Use: Reports: Coffee ED ROS GENERAL - Review of Systems Review Of Systems: See Below Constitutional: Denies: Fever, Weakness, Diaphoresis, Weight Loss, Weight Gain HEENT: Reports: Glasses. Denies: Ear Pain, Sinus Problem, Vertigo, Vision Change Respiratory: Denies: Shortness of Breath, Cough Cardiovascular: Reports: Blood Pressure Problem, Lightheadedness. Denies: Chest Pain, Claudication, Dyspnea on Exertion, Orthopnea, Palpitations, Syncope Endocrine: Denies: Polyuria GI/Abdominal: Denies: Abdominal Pain, Constipation, Diarrhea, Nausea, Vomiting : Denies: Discharge, Dysuria, Frequency, Hematuria Musculoskeletal: Reports: No Symptoms Skin: Denies: Change in Color Neurological: Reports: Dizziness, Gait Disturbance. Denies: Confusion, Headache, Paresthesia, Syncope, Trouble Speaking, Change in Speech Psychiatric: Reports: No Symptoms Hematologic/Lymphatic: Reports: No Symptoms Immunologic: Reports: No Symptoms ED EXAM, GENERAL - Physical Exam Exam: See Below Exam Limited By: No Limitations General Appearance: Alert, WD/WN, No Apparent Distress Eye Exam: Bilateral Eye: EOMI Ears: Hearing Grossly Normal Nose: Normal Inspection Throat/Mouth: Normal Inspection, Normal Oropharynx, Normal Voice, No Airway Compromise Head: Atraumatic, Normocephalic Neck: Normal Inspection, Supple, Non-Tender, Full Range of Motion Respiratory/Chest: No Respiratory Distress, Lungs Clear, Normal Breath Sounds, Chest Non-Tender Cardiovascular: Normal Peripheral Pulses, Regular Rate, Rhythm, No Edema Peripheral Pulses: 1+: Radial (L) (lef ulnar pulse. Left radial artery was harvested for CABG), Dorsalis Pedis (L), Dorsalis Pedis (R), 2+: Carotid (L), Brachial (L), Radial (R) GI/Abdominal: Normal Bowel Sounds, Soft, Non-Tender, No Organomegaly, No Distention Back Exam: Normal Inspection, Full Range of Motion Extremities: Normal Inspection, Normal Range of Motion, Non-Tender, No Pedal Edema Neurological: Alert, Oriented, Normal Cognition, Normal Gait (assisted), No Motor/Sensory Deficits Psychiatric: Normal Affect, Normal Mood Skin Exam: Warm, Dry, Intact, Normal Color, No Rash #1 Interpretation EKG Date: 11/12/20 Time: 11:19 Rhythm: Other (sinus bradycaria) Rate (Beats/Min): 54 [place]: Normal P-Wave: Present QRS: RBBB ST-T: Normal QT: Normal Comparison: NA - No Prior EKG EKG Interpretation Comments: Sinus bradycardia Right bundle branch block Abnormal ECG Course - Vital Signs Last Recorded V/S: Last Vital Signs Temp 97.3 F 11/12/20 11:05 Pulse 54 L 11/12/20 13:20 Resp 18 11/12/20 13:20 BP 182/68 H 11/12/20 13:20 Pulse Ox 97 11/12/20 13:20 Orthostatic Blood Pressure [ 167/72 Standing] Orthostatic Blood Pressure [ 171/62 Sitting] Orthostatic Blood Pressure [ 171/69 Supine] - Orders/Labs/Meds Orders: Active Orders 24 hr Category Date Time Status EKG Documentation Completion [RC] ASDIRECTED Care 11/12/20 11:12 Active EKG 12 Lead [EK] Stat Ther 11/12/20 11:11 Ordered Labs: Laboratory Tests 11/12/20 11/12/20 11/12/20 Range/Units 11:27 11:27 11:50 WBC 4.83 L (5.00-10.00) 10^3/uL RBC 4.52 (3.80-5.50) 10^6/uL Hgb 12.6 (12.0-16.0) g/dL Hct 38.4 (37.0-47.0) % MCV 85.0 (82.0-92.0) fL MCH 27.9 (27.0-31.0) pg MCHC 32.8 (32.0-36.0) g/dL RDW 13.0 (11.5-14.5) % Plt Count 183 (150-400) 10^3/uL MPV 8.8 (7.4-10.4) fL Immature Gran % (Auto) 0.2 (0.0-5.0) % Neut % (Auto) 63.8 (50.0-70.0) % Lymph % (Auto) 23.4 (20.0-40.0) % [place] % (Auto) 7.0 (2.0-8.0) % Eos % (Auto) 5.0 H (1.0-3.0) % Baso % (Auto) 0.6 (0.0-1.0) % Neut # (Auto) 3.08 (2.50-7.00) 10^3/uL Lymph # (Auto) 1.13 (1.00-4.00) 10^3/uL [place] # (Auto) 0.34 (0.10-0.80) 10^3/uL Eos # (Auto) 0.24 (0.10-0.30) 10^3/uL Baso # (Auto) 0.03 (0.00-0.10) 10^3/uL Immature Gran # (Auto) 0.01 (0.00-0.50) 10^3/uL Sodium 141 (136-145) mmol/L Potassium 4.3 (3.5-5.1) mmol/L Chloride 102 (98-107) mmol/L Carbon Dioxide 29.3 (21.0-32.0) mmol/L Anion Gap 14.0 (5-15) mmol/L BUN 19 H (7-18) mg/dL Creatinine 1.32 H (0.51-1.17) mg/dL Est Cr Clr Drug Dosing 28.55 mL/min Estimated GFR (MDRD) 38 mL/min Glucose 132 (70-140) mg/dL Calcium 9.1 (8.7-10.3) mg/dL Total Bilirubin 0.4 (0.2-1.0) mg/dL AST 20 (15-37) U/L ALT 26 (14-63) U/L Alkaline Phosphatase 98 (46-116) U/L Troponin I High Sens 16.700 (0-51.000) pg/mL Total Protein 7.1 (6.4-8.2) g/dL Albumin 3.74 (3.40-5.00) g/dL Specimen Type Urincc Urine Color Light yellow (YELLOW) Urine Appearance Clear (CLEAR) Urine pH 7.0 (5.0-9.0) Ur Specific [place] 1.015 (1.005-1.030) Urine Protein Negative (NEGATIVE) mg/dL Urine Glucose (UA) Negative (NEGATIVE) mg/dL Urine Ketones Negative (NEGATIVE) mg/dL Urine Occult Blood Negative (NEGATIVE) Urine Nitrite Negative (NEGATIVE) Urine Bilirubin Negative (NEGATIVE) Urine Urobilinogen 0.2 (0.2-1.0) E.U./dL Ur Leukocyte Esterase Trace H (NEGATIVE) Urine RBC 0-5 (0-5) /HPF Urine WBC 0-5 (0-5) /HPF Ur Epithelial Cells Few /LPF Urine Bacteria Moderate H (NONE TO FEW) /HPF 11/12/20 Range/Units 13:18 WBC (5.00-10.00) 10^3/uL RBC (3.80-5.50) 10^6/uL Hgb (12.0-16.0) g/dL Hct (37.0-47.0) % MCV (82.0-92.0) fL MCH (27.0-31.0) pg MCHC (32.0-36.0) g/dL RDW (11.5-14.5) % Plt Count (150-400) 10^3/uL MPV (7.4-10.4) fL Immature Gran % (Auto) (0.0-5.0) % Neut % (Auto) (50.0-70.0) % Lymph % (Auto) (20.0-40.0) % [place] % (Auto) (2.0-8.0) % Eos % (Auto) (1.0-3.0) % Baso % (Auto) (0.0-1.0) % Neut # (Auto) (2.50-7.00) 10^3/uL Lymph # (Auto) (1.00-4.00) 10^3/uL [place] # (Auto) (0.10-0.80) 10^3/uL Eos # (Auto) (0.10-0.30) 10^3/uL Baso # (Auto) (0.00-0.10) 10^3/uL Immature Gran # (Auto) (0.00-0.50) 10^3/uL Sodium (136-145) mmol/L Potassium (3.5-5.1) mmol/L Chloride (98-107) mmol/L Carbon Dioxide (21.0-32.0) mmol/L Anion Gap (5-15) mmol/L BUN (7-18) mg/dL Creatinine (0.51-1.17) mg/dL Est Cr Clr Drug Dosing mL/min Estimated GFR (MDRD) mL/min Glucose (70-140) mg/dL Calcium (8.7-10.3) mg/dL Total Bilirubin (0.2-1.0) mg/dL AST (15-37) U/L ALT (14-63) U/L Alkaline Phosphatase (46-116) U/L Troponin I High Sens (0-51.000) pg/mL Total Protein (6.4-8.2) g/dL Albumin (3.40-5.00) g/dL Specimen Type Urincc Urine Color Light yellow (YELLOW) Urine Appearance Slightly cloudy H (CLEAR) Urine pH 7.0 (5.0-9.0) Ur Specific [place] 1.015 (1.005-1.030) Urine Protein Negative (NEGATIVE) mg/dL Urine Glucose (UA) Negative (NEGATIVE) mg/dL Urine Ketones Negative (NEGATIVE) mg/dL Urine Occult Blood Trace-intact H (NEGATIVE) Urine Nitrite Negative (NEGATIVE) Urine Bilirubin Negative (NEGATIVE) Urine Urobilinogen 0.2 (0.2-1.0) E.U./dL Ur Leukocyte Esterase Negative (NEGATIVE) Urine RBC 0-5 (0-5) /HPF Urine WBC 0-5 (0-5) /HPF Ur Epithelial Cells Few /LPF Urine Bacteria Few (NONE TO FEW) /HPF Meds: Medications Discontinued Medications Generic Name Dose Route Start Last Admin Trade Name Flaco PRN Reason Stop Dose Admin Sodium Chloride 1,000 mls @ 999 mls/hr 11/12/20 12:39 11/12/20 12:44 Normal Saline IV 11/12/20 13:39 500 mls/hr .BOLUS ONE Administration - Re-Assessments/Exams Free Text/Narrative Re-Assessment/Exam: 11/12/20 13:12 Patient reports no dizziness with sitting or lying down. Her symptoms of dizziness present with standing. She was assisted to the bathroom. She reports no vertigo symptoms. Patient did not elicit any orthostatic blood pressure changes. Last blood pressure was 144/65. Her Norvasc was given as she brought her medications with her. Departure - Departure Time of Disposition: 14:35 Disposition: Home, Self-Care 01 Condition: Good Clinical Impression: Dizziness on standing Hypertension Qualifiers: Hypertension type: essential hypertension Qualified Code(s): I10 - Essential (primary) hypertension Instructions: Dizziness, Managing Your Hypertension Referrals: Esme Alonzo NP [Primary Care Provider] - 11/15/20 11:00 am Forms: ED Department Discharge Care Plan Goals: 1. Patient will resume her regular prescribed medications as instructed by her medical provider. 2. Patient will continue with oral hydration. 3. Avoid exertional activities during this time. 4. Follow-up appointment with her primary care, Esme Alonzo nurse practitioner Sunday. Sepsis Event Note (ED) - Evaluation Sepsis Screening Result: No Definite Risk - Focused Exam Vital Signs: Vital Signs Temp Pulse Resp BP Pulse Ox 11/12/20 13:20 54 L 18 182/68 H 97 11/12/20 12:46 50 L 15 144/65 H 98 11/12/20 11:05 97.3 F 55 L 16 199/71 H 96 - My Orders Last 24 Hours: My Active Orders 11/12/20 11:11 EKG 12 Lead [EK] Stat 11/12/20 11:12 EKG Documentation Completion [RC] ASDIRECTED - Assessment/Plan Last 24 Hours: My Active Orders 11/12/20 11:11 EKG 12 Lead [EK] Stat 11/12/20 11:12 EKG Documentation Completion [RC] ASDIRECTED Assessment:: 1. Dizziness 2. Intravascular volume depletion 3. Hypertension with recent change in blood pressure medications. Plan: 1. Patient will resume her regular prescribed medications as instructed by her medical provider. 2. Patient will continue with oral hydration. 3. Avoid exertional activities during this time. 4. Follow-up appointment with her primary care, Esme Alonzo nurse practitioner Sunday.
== END 2020-11-12 14:35 | disposition home or self-care (01) ==
LOC: KA.ED 10:56
DX: R42 Dizziness and giddiness (principal); I10 Essential (primary) hypertension; I48.91 Unspecified atrial fibrillation; E78.00 Pure hypercholesterolemia, unspecified; K21.9 Gastro-esophageal reflux disease without esophagitis; Z79.899 Other long term (current) drug therapy; Z88.2 Allergy status to sulfonamides; Z88.1 Allergy status to other antibiotic agents
CPT/HCPCS: 36415; 80053; 81001; 84484; 85025; 93005; 99284; 99284-25; J7030

== ENCOUNTER 2022-02-16 15:29 | Observation (INO) | payer MEDICARE, OTHER ==
[2022-02-16] MEDS ORDERED: Sodium Chloride 0.9% 10 ML Syringe FLUSH PRN (16:28)
[2022-02-16] MEDS: cefTRIAXone 1 GM Vial IVPUSH SCH (16:54)
[2022-02-16] MEDS: Azithromycin 500 MG in Sodium Chloride 0.9% 250 ML IV SCH (16:55)
[2022-02-16] MEDS: Sodium Chloride 0.9% 50 ML IV SCH (16:56)
[2022-02-16] MEDS ORDERED: Acetaminophen 325 MG Tab PO PRN (17:02)
[2022-02-16] MEDS ORDERED: Sodium Chloride 0.9% 500 ML IV SCH (19:30)
[2022-02-16] MEDS: Benzonatate 100 MG Cap PO PRN (21:46)
[2022-02-16] MEDS: guaiFENesin 600 MG Tab.ER PO PRN (23:49)
[2022-02-17] MEDS: Benzonatate 100 MG Cap PO PRN ×4 (03:49→23:02)
[2022-02-17] MEDS: Omeprazole 20 MG Cap.CR PO SCH ×2 (05:38→06:31)
[2022-02-17 07:43] LABS: ANION GAP 11.1 mmol/L (5-15)
[2022-02-17] MEDS: Docusate Sodium 100 MG Cap PO SCH (08:30)
[2022-02-17] MEDS: Cholecalciferol (Vitamin D3) 25 MCG Tab PO SCH (08:30)
[2022-02-17] MEDS: Metoprolol Succinate 25 MG Tab.ER - PTOM PO SCH (08:30)
[2022-02-17] MEDS: Aspirin 81 MG Tab.EC PO SCH (08:30)
[2022-02-17] MEDS ORDERED: Fluticasone NASAL Spray 16 GM Bottle NASBOTH SCH (09:00)
[2022-02-17] MEDS: cefTRIAXone 1 GM Vial IVPUSH SCH (15:48)
[2022-02-17] MEDS: Azithromycin 500 MG in Sodium Chloride 0.9% 250 ML IV SCH (15:48)
[2022-02-17] MEDS: Sodium Chloride 0.9% 50 ML IV SCH (15:51)
[2022-02-17] MEDS: guaiFENesin 600 MG Tab.ER PO PRN (20:15)
[2022-02-18] MEDS: Benzonatate 100 MG Cap PO PRN (03:45)
[2022-02-18] MEDS: Omeprazole 20 MG Cap.CR - PTOM PO SCH ×2 (06:12→06:29)
[2022-02-18] MEDS: Metoprolol Succinate 25 MG Tab.ER - PTOM PO SCH (08:23)
[2022-02-18] MEDS: Docusate Sodium 100 MG Cap PO SCH (08:23)
[2022-02-18] MEDS: guaiFENesin 600 MG Tab.ER PO PRN (08:23)
[2022-02-18] MEDS: Cholecalciferol (Vitamin D3) 25 MCG Tab PO SCH (08:23)
[2022-02-18] MEDS: Aspirin 81 MG Tab.EC PO SCH (08:23)
[2022-02-18 08:25] VITALS: BP 141/49; PULSE 77
== END 2022-02-18 14:10 | disposition home or self-care (01) ==
LOC: KA.MS 15:30 → UNDOADMOB 15:30 → KA.MS 15:39
PROVIDERS: ADMIT Nurse Practitioner Family; ATTEND Family Medicine
DX: J18.9 Pneumonia, unspecified organism (principal); R05.9 Cough, unspecified; R06.02 Shortness of breath; I13.0 Hypertensive heart and chronic kidney disease with heart failure and stage 1 through stage 4 chronic kidney disease, or unspecified chronic kidney disease; I50.32 Chronic diastolic (congestive) heart failure; N18.32 Chronic kidney disease, stage 3b; E11.22 Type 2 diabetes mellitus with diabetic chronic kidney disease; I25.10 Atherosclerotic heart disease of native coronary artery without angina pectoris; R73.03 Prediabetes; E78.5 Hyperlipidemia, unspecified; E66.9 Obesity, unspecified; Z79.82 Long term (current) use of aspirin; Z79.899 Other long term (current) drug therapy; Z95.1 Presence of aortocoronary bypass graft; Z88.2 Allergy status to sulfonamides; Z88.8 Allergy status to other drugs, medicaments and biological substances; Z90.49 Acquired absence of other specified parts of digestive tract; Z98.890 Other specified postprocedural states; Z90.710 Acquired absence of both cervix and uterus; Z68.32 Body mass index [BMI] 32.0-32.9, adult
CPT/HCPCS: 36415; 80048; 83880; 85025; 86140; 87040; 96361; 96365; 96366; 96375; 96376; A9270-GY; G0378; J0456; J0696; J3490; J7040; J7050